=== PATIENT | male | born 1990 | race Caucasian/White ===

== ENCOUNTER 2023-04-13 21:24 | Emergency (ER) | payer SELFPAY ==
[2023-04-13] MEDS ORDERED: methylPREDNISolone Sodium Succinate 125 MG/2 ML SDV ONE (21:39)
[2023-04-13] MEDS ORDERED: Albuterol/Ipratropium 3.0-0.5 MG/3 ML Neb Soln NEB ONE (21:41)
[2023-04-13] MEDS ORDERED: Sodium Chloride 0.9% 10 ML Syringe FLUSH PRN (21:41)
[2023-04-13] MEDS ORDERED: Sodium Chloride 0.9% 2.5 ML Syringe FLUSH PRN (21:41)
[2023-04-13] MEDS ORDERED: methylPREDNISolone Sodium Succinate 125 MG/2 ML SDV IVPUSH ONE (21:41)
== END 2023-04-13 22:58 | disposition home or self-care (01) ==
LOC: MW.ED 21:24
DX: J45.901 Unspecified asthma with (acute) exacerbation (principal); Z79.899 Other long term (current) drug therapy
CPT/HCPCS: 96374; 99284; J2930; J3490; J7620-GY